=== PATIENT | male | born 1995 | race African-American/Black ===

== ENCOUNTER 2017-08-08 21:19 | Emergency (ER) | payer SELFPAY ==
[~2017-08-08] VITALS: Ht 180.3 cm; Wt 72.1 kg
[2017-08-08 22:00] VITALS: BP 110/64
== END 2017-08-08 22:15 ==
LOC: EME 21:19
DX: F19.10 Other psychoactive substance abuse, uncomplicated (principal); R45.851 Suicidal ideations; Z02.89 Encounter for other administrative examinations
CPT/HCPCS: 99281; 99283